=== PATIENT | female | born 1995 | race Two or more races ===

== ENCOUNTER 2018-01-12 08:19 | Outpatient (CLI) | payer OTHER | END 2018-01-12 09:28 | disposition home or self-care (01) | LOC: RAD 08:19 | DX: M25.561 Pain in right knee (principal); M25.562 Pain in left knee; G43.909 Migraine, unspecified, not intractable, without status migrainosus; J30.9 Allergic rhinitis, unspecified; R51 Headache; Z13.29 Encounter for screening for other suspected endocrine disorder; Z13.220 Encounter for screening for lipoid disorders ==

== ENCOUNTER 2018-01-15 08:31 | Outpatient (CLI) | payer OTHER | END 2018-01-15 10:04 | disposition home or self-care (01) | LOC: SONOGRAMA 08:31 → MAMO-SONO 08:45 → SONOGRAMA 10:04 | DX: G43.909 Migraine, unspecified, not intractable, without status migrainosus (principal); J30.9 Allergic rhinitis, unspecified; R51 Headache; Z13.29 Encounter for screening for other suspected endocrine disorder; Z13.220 Encounter for screening for lipoid disorders; M25.561 Pain in right knee; M25.562 Pain in left knee ==